=== PATIENT | female | born 1995 | race African-American/Black ===

== ENCOUNTER 2021-07-19 17:25 | Inpatient (IN) | payer MEDICAID ==
[2021-07-20 01:30] VITALS: BP 110/68
[2021-07-20] MEDS ORDERED: SERT-158 PO (01:45)
[2021-07-20] MEDS ORDERED: ZOLPIDEM TARTRATE 10 MG TABLET PO PRN (01:45)
[2021-07-20] MEDS ORDERED: TRAZ-252 PO (01:45)
[2021-07-20] MEDS ORDERED: CloNIDine HCL 0.1 MG TABLET PO PRN (08:00)
[2021-07-20] MEDS ORDERED: IBUPROFEN 600 MG TABLET PO PRN (08:00)
[2021-07-20] MEDS ORDERED: ACETAMINOPHEN 325 MG TABLET PO PRN (08:00)
[2021-07-20] MEDS ORDERED: BACITRACIN 28 GM OINTMENT TP PRN (08:00)
[2021-07-20] MEDS ORDERED: BENZOCAINE/MENTHOL LOZENGE PO PRN (08:00)
[2021-07-20] MEDS ORDERED: OMEPRAZOLE 20 MG CAPSULE PO PRN (08:00)
[2021-07-20] MEDS ORDERED: ONDANSETRON HCL 4 MG TABLET PO PRN (08:00)
[2021-07-20] MEDS ORDERED: LOPERAMIDE HCL 2 MG CAPSULE PO PRN (08:00)
[2021-07-20] MEDS ORDERED: PETROLATUM,WHITE 28 GM JELLY TP PRN (08:00)
[2021-07-20] MEDS ORDERED: MAG HYDROX/AL HYDROX/SIMETH ES 30 ML SUSPENSION UDCUP PO PRN (08:00)
[2021-07-20] MEDS ORDERED: DOCUSATE SODIUM 100 MG CAPSULE PO PRN (08:00)
[2021-07-20] MEDS ORDERED: MAGNESIUM HYDROXIDE SUSPENSION 30 ML UDCUP PO PRN (08:00)
[2021-07-20] MEDS ORDERED: ALBUTEROL SULFATE HFA 90 MCG/PUFF 8 GM INHALER IH PRN (08:00)
[2021-07-20] MEDS: LORazepam 1 MG TABLET PO PRN ×2 (09:00→21:36)
[2021-07-20 09:52] LABS: AMPHET/METH SCREEN,URINE NEGATIVE (NEGATIVE); BARBITURATE SCREEN, URINE NEGATIVE (NEGATIVE); BENZODIAZEPINES SCREEN,URINE NEGATIVE (NEGATIVE); CANNABINOID SCREEN,URINE POSITIVE (NEGATIVE); COCAINE SCREEN,URINE NEGATIVE (NEGATIVE); METHADONE SCREEN, URINE NEGATIVE (NEGATIVE); OPIATE SCREEN,URINE NEGATIVE (NEGATIVE)
[2021-07-20 09:55] LABS: PHENCYCLIDINE SCREEN,URINE NEGATIVE (NEGATIVE)
[2021-07-20 10:27] VITALS: BP 130/73
[2021-07-20] MEDS: SERTRALINE HCL 50 MG TABLET PO SCH (10:38)
[2021-07-20 11:40] LABS: APPEARANCE,URINE CLOUDY (CLEAR); BILIRUBIN,URINE NEGATIVE (NEGATIVE); GLUCOSE, URINE (UA) NEGATIVE (NEGATIVE); KETONES,URINE TRACE mg/dL (NEGATIVE); LEUKOCYTE ESTERASE ,URINE SMALL (NEGATIVE); NITRATE,URINE NEGATIVE (NEGATIVE); OCCULT BLOOD,URINE NEGATIVE (NEGATIVE); PROTEIN,URINE NEGATIVE (NEGATIVE); UROBILINOGEN,URINE 0.2 mg/dL (<=1.0)
[2021-07-20 11:47] LABS: RBC,URINE None Seen /HPF (0-2)
[2021-07-20 11:48] LABS: BACTERIA,URINE None Seen /HPF (None Seen); SQUAMOUS EPITHELIAL CELL,UR Few /LPF (None Seen)
[2021-07-20 16:14] VITALS: BP 122/76
[2021-07-20] MEDS: CEPHALEXIN MONOHYDRATE 500 MG CAPSULE PO SCH (17:42)
[2021-07-20] MEDS: TraZODone HCL 50 MG TABLET PO SCH (21:37)
[2021-07-20] MEDS: MIRTAZAPINE 15 MG TABLET PO SCH (21:38)
[2021-07-21 03:53] VITALS: BP 118/72
[2021-07-21 07:17] LABS: BASOPHILS % (AUTO) 0.6 % (0.0-2.0); EOSINOPHILS % (AUTO) 7.7 % (1.0-6.0); HEMATOCRIT 36.5 % (36-46); HEMOGLOBIN 12.2 g/dL (12.0-16.0); LYMPHOCYTES # (AUTO) 2.6 K/uL (1.0-4.8); LYMPHOCYTES % (AUTO) 37.3 % (22.0-44.0); MEAN CORPUSCULAR HEMOGLOBIN 29.9 pg (26.0-34.0); MEAN CORPUSCULAR HGB CONC 33.4 G/dL (31.0-37.0); MEAN CORPUSCULAR VOLUME 89 fL (80-100); MONOCYTES # (AUTO) 0.6 K/uL (0.1-1.0); MONOCYTES % (AUTO) 8.6 % (2.0-9.0); NEUTROPHILS # (AUTO) 3.2 K/uL (1.8-7.7); NEUTROPHILS % (AUTO) 45.8 % (40.0-70.0); PLATELET COUNT (AUTO) 264 K/uL (150-450); RED BLOOD CELL COUNT(AUTO) 4.08 MIL/uL (4.00-5.20); RED CELL DISTRIBUTION WIDTH 13.8 % (11.5-14.5)
[2021-07-21 07:38] LABS: HEMOGLOBIN A1C 4.9 % (3.8-5.6)
[2021-07-21 07:44] LABS: ALANINE AMINOTRANSFERASE 19 U/L (12-78); ALBUMIN 3.5 g/dL (3.4-5.0); ALKALINE PHOSPHATASE 47 U/L (46-116); ANION GAP 11 mmol/L (8-16); ASPARTATE AMINOTRANSFERASE 13 U/L (15-37); BILIRUBIN,TOTAL 0.2 mg/dL (0.1-1.0); CALCIUM, TOTAL 8.7 mg/dL (8.8-10.5); CARBON DIOXIDE 25 mmol/L (22-29); CHLORIDE 106 mmol/L (98-107); CHOLESTEROL 175 mg/dL (131-200); CREATININE 0.76 mg/dL (0.60-1.30); FREE T4 (FREE THYROXINE) 0.85 ng/dL (0.76-1.46); GLOMERULAR FILTR. RATE CALC > 60 mL/min (>60); GLUCOSE,RANDOM 78 mg/dL (70-110); HCG,QUANTITATIVE 1 mIU/mL (0-6); HDL CHOLESTEROL 58 mg/dL (40-60); LDL CHOL (CALC.) 107 mg/dL (0-130); POTASSIUM 3.7 mmol/L (3.5-5.1); SODIUM SERUM 142 mmol/L (136-145); THYROID STIMULATING HORMONE 0.43 uIU/mL (0.36-3.74); TRIGLYCERIDES 51 mg/dL (15-150); UREA NITROGEN, BLOOD 10 mg/dL (7-18)
[2021-07-21 08:20] VITALS: BP 111/74
[2021-07-21] MEDS: CEPHALEXIN MONOHYDRATE 500 MG CAPSULE PO SCH ×3 (09:15→17:16)
[2021-07-21] MEDS: SERTRALINE HCL 50 MG TABLET PO SCH (09:23)
[2021-07-21] MEDS: LORazepam 1 MG TABLET PO PRN ×3 (09:28→19:56)
[2021-07-21] MEDS ORDERED: LORazepam 2 MG/ML VIAL ONE (14:22)
[2021-07-21] MEDS ORDERED: DiphenhydrAMINE HCL 50 MG/ML VIAL ONE (14:23)
[2021-07-21] MEDS ORDERED: LORazepam 2 MG/ML VIAL IM ONE (14:45)
[2021-07-21] MEDS ORDERED: DiphenhydrAMINE HCL 50 MG/ML VIAL IM ONE (14:45)
[2021-07-21 16:11] VITALS: BP 114/77
[2021-07-21] MEDS: HALOPERIDOL 5 MG TABLET PO PRN (17:22)
[2021-07-21] MEDS: TraZODone HCL 50 MG TABLET PO SCH (20:31)
[2021-07-21] MEDS: MIRTAZAPINE 15 MG TABLET PO SCH (20:32)
[2021-07-22 04:35] VITALS: BP 120/75
[2021-07-22 08:20] VITALS: BP 110/70
[2021-07-22] MEDS: SERTRALINE HCL 50 MG TABLET PO SCH (09:36)
[2021-07-22] MEDS: CEPHALEXIN MONOHYDRATE 500 MG CAPSULE PO SCH ×3 (09:36→15:54)
[2021-07-22] MEDS: LORazepam 1 MG TABLET PO PRN ×3 (09:42→15:55)
[2021-07-22] MEDS: HALOPERIDOL 5 MG TABLET PO PRN (13:30)
[2021-07-22] MEDS: NICOTINE 21 MG/24 HOUR PATCH TD SCH (13:57)
[2021-07-22 16:16] VITALS: BP 121/72
[2021-07-22] MEDS: TraZODone HCL 50 MG TABLET PO SCH (20:47)
[2021-07-22] MEDS: MIRTAZAPINE 15 MG TABLET PO SCH (20:47)
[2021-07-23 02:06] VITALS: BP 110/77
[2021-07-23] MEDS: LORazepam 1 MG TABLET PO PRN ×2 (04:02→08:50)
[2021-07-23 08:12] VITALS: BP 118/69
[2021-07-23] MEDS: NICOTINE 21 MG/24 HOUR PATCH TD SCH (08:51)
[2021-07-23] MEDS ORDERED: SERTRALINE HCL 50 MG TABLET PO SCH (09:00)
[2021-07-23] MEDS: HALOPERIDOL 5 MG TABLET PO PRN (12:09)
[2021-07-23] MEDS ORDERED: MIRT-89 PO ×2 (13:46→14:06)
[2021-07-23] MEDS ORDERED: TRAZ-252 PO ×2 (13:46→14:08)
[2021-07-23] MEDS ORDERED: SERT-439 PO (13:46)
[2021-07-23] MEDS ORDERED: MELA5TAB40 PO ×2 (13:46→14:05)
[2021-07-23] MEDS ORDERED: OMEG-135 PO ×2 (13:46→14:07)
[2021-07-23] MEDS ORDERED: NALT50TA PO (13:46)
[2021-07-23] MEDS ORDERED: NALT50TA6 PO (14:07)
[2021-07-23] MEDS ORDERED: SERT-158 PO (14:08)
== END 2021-07-23 14:51 | disposition home or self-care (01) | DRG 751 ==
LOC: B3A 07-20 03:07
PROVIDERS: ADMIT Psychiatry & Neurology Psychiatry; ATTEND Psychiatry & Neurology Psychiatry
DX: F33.2 Major depressive disorder, recurrent severe without psychotic features (principal); Z91.14 Patient's other noncompliance with medication regimen; F10.10 Alcohol abuse, uncomplicated; F12.10 Cannabis abuse, uncomplicated; F20.9 Schizophrenia, unspecified; F43.10 Post-traumatic stress disorder, unspecified; K59.00 Constipation, unspecified; N39.0 Urinary tract infection, site not specified; G47.00 Insomnia, unspecified; Z20.822 Contact with and (suspected) exposure to COVID-19; Z55.9 Problems related to education and literacy, unspecified; Z59.9 Problem related to housing and economic circumstances, unspecified; Z65.3 Problems related to other legal circumstances; Z79.899 Other long term (current) drug therapy; Z91.19 Patient's noncompliance with other medical treatment and regimen; Z56.0 Unemployment, unspecified
CPT/HCPCS: 80053; 80061; 80307; 81001; 83036; 84439; 84443; 84702; 85025; 86592; 87086; J1200; J2060